=== PATIENT | male | born 1950 | race Caucasian/White ===

== ENCOUNTER 2016-06-08 18:47 | Emergency (ER) | payer OTHER ==
[~2016-06-08] VITALS: Ht 182.9 cm; Wt 107.7 kg
[~2016-06-08 18:47] MED LIST: ATEN50TA7 PO; LISI20TA PO; MIRT45TA PO; P EP PO; ZIPR80CA PO
[2016-06-08 19:02] VITALS: BP 136/71; PULSE 71; RESP 16; O2SAT 95
--- NOTE | 2016-06-08 19:09 | ED.REPORT ---
HPI-Extremity Problem Upper Date of Service Jun 08, 2016 ED Provider: Lele Inman DO A 65 year old male with a history of MRSA infection and paronychia presents to the ED complaining of a possible finger infection. The pt recently noticed redness, pain and swelling around the fingernail of his right third digit and became concerned that the area may be infected. The pt experienced similar symptoms several years ago and was diagnosed with paronychia. Nursing Notes Stated Complaint: RIGHT FINGER SWELLING AND RED Chief Complaint: Extremity Trauma Nursing Notes Reviewed: Yes Allergies: Coded Allergies: No Known Allergies (Verified , 06/08/16) Scheduled Atenolol-Expunged Drug, Do Not Renew! (Atenolol-Expunged Drug, Do Not Renew!) 50 Mg Tablet 50 MG PO AM Lisinopril-Expunged Drug, Do Not Renew! (Lisinopril-Expunged Drug, Do Not Renew! ) 20 Mg Tablet 20 MG PO AM Hold AM of surgery Mirtazapine-Expunged Drug, Do Not Renew! (Remeron-Expunged Drug, Do Not Renew!) 45 Mg Tablet 45 MG PO pm P-Ephed/Lorat (Allerclear D-24HR - Expunged Drug!) 1 Each Tab.sr.24h 1 EACH PO BID Ziprasidone-Expunged Drug, Do Not Renew! (Geodon-Expunged Drug, Do Not Renew!) 80 Mg Capsule 80 MG PO AM Ziprasidone-Expunged Drug, Do Not Renew! (Geodon-Expunged Drug, Do Not Renew!) 80 Mg Capsule 160 MG PO pm General Time Seen by MD: 19:09 Chief Complaint Other (Possible finger infection) Hx Obtained From: Patient Arrived By: Walk-in Symptom Duration: Since onset Recent Healthcare: No recent doctor visit, No recent hospitalization Similar Sx Previous: Yes Past Medical History Past Medical History MRSA paronychia Past Surgical History none reported Smoking History Unknown if Ever Smoker Social History Other Social History: Good social support, Ambulatory Status Independent Review of Systems Review of Systems Note: right third finger pain and swelling Constitutional: Denies: Fever Musculoskeletal: Denies: Back pain Skin: Denies Rash Complete sys rev & neg: except as marked. Respiratory: Denies: Non-productive cough Cardiovascular: Denies: Chest pain GI: Denies: Abdominal pain Physical Exam Initial Vital Signs Vital Signs (First) Date Time Temp Pulse Resp B/P Pulse Ox O2 Delivery O2 Flow Rate FiO2 06/08/16 19:02 36.6 71 16 136/71 95 Room Air Initial VS: Reviewed General/Constitutional: Awake, Alert Neck: Atraumatic, Supple, Full range of motion Respiratory / Chest: Atraumatic, Breath sounds NL, Breath sounds = bilat, No respiratory distress Cardiovascular: Heart rate NL, Regular rhythm, Heart sounds NL Upper Extremity / MS: Atraumatic, Full range of motion Wrist / Hand: Full range of motion paronychial infection of the right third digit no evidence of flexor or extensor tenosynovitis Skin: Warm, Dry Neurologic: Oriented X3, Speech NL, No motor deficits, No sensory deficits Head / Eyes: Atraumatic, Normocephalic, PERRL, EOMI ENT: Atraumatic, Airway patent, Mucous membranes moist Abdomen: Atraumatic, Soft, Non-tender Back: Atraumatic, Full range of motion Lower Extremity / Pelvis / MS: Atraumatic, Full range of motion Psychiatric: Affect NL, Mood NL Interpretation & Diagnostics Pulse Oximetry Interpretation Pulse Oximetry Interpretation: 95% on room air Pulse Oximetry: Pulse Ox normal Procedures Digital Nerve Block Time: 19:40 Procedure Performed by: ED physician Indication: Other (I&D paronychia) Consent / Setup / Site Prep: Informed consent provided, Consent from patient , Time-out performed, Hand hygiene observed, Stand sterile technique Skin Preparation Agent: Normal saline Digit Involved: Middle finger right Digital Block Procedure: Lidocaine 2% Post-Procedure / Complications: Antibiotic oint applied, Dressing applied, No complications, Condition improved, Tolerated procedure well, Patient stable Incision & Drainage Paronychia Time: 19:45 Procedure Performed by: ED physician Consent / Setup / Site Prep: Informed consent provided, Consent from patient , Time-out performed, Hand hygiene observed, Stand sterile technique, Standard surgical scrub, Sterile drapes applied Finger Involved: Right 3 Skin Preparation Agent: Normal saline Local Anesthesia: Lidocaine 2% Incised Abscess with Scalpel: #11 Pus Drained: Purulent discharge Post-Procedure / Complications: Packing placed, Culture obtained, Dressing applied, No complications, Condition improved, Tolerated procedure well, Patient stable Re-Eval/Medical Decision Source of Hx: Old records Re-Evaluation/Progress : Time of Eval: 19:40 Patient Status: Condition improved Re-Evaluation/Progress Note: Pt rechecked, who is comfortable. Digital nerve block and I&D are performed with out complication. The diagnosis and plan for discharge are discussed. The pt understands and agrees with the plan. All questions are addressed at this time. Counseled Regarding: Diagnosis, Need for follow-up, When/why to return to ED Discharge & Departure Impression: Primary Impression: Paronychia of finger of right hand Disposition: Home Discharge Condition All VS Reviewed: Yes Condition: Stable Patient Instructions: Paronychia (ED) Additional Instructions: Take Augmentin and Bactrim twice daily for 5 days. Soak your hand in Epsom salts with warm water as we discussed. Take 1-2 [place] every 6 hours as needed for pain. If the infection seemed to grow in size or any redness extends up your finger then come back tomorrow for recheck. Otherwise follow-up with your primary care physician next week. We have done a culture of the purulent material that was drained. This will help guide antibiotic therapy. This will be available in roughly 3-[address] or drink alcohol or consume acetaminophen while taking the [place]. Referrals: [facility] Attestation Portions of this note were transcribed by Martinez Coles. I, Dr. Inman personally performed the history, physical exam and medical decision-making; I reviewed and confirmed the accuracy of the information in the transcribed note. Signed by: Eitan Barry, 06/08/16 and 2016. copies to: [facility] Lele Inman DO Jun 08, 2016 19:09 MARTINEZ COLES Jun 08, 2016 19:20
[2016-06-08] MEDS ORDERED: Trimethoprim-Sulfa 160 mg-800 mg Tablet PO ONE (20:10)
[2016-06-08] MEDS ORDERED: Amoxicillin-Clav 875-125 mg Tablet PO ONE (20:10)
[2016-06-08 20:34] VITALS: BP 136/71; PULSE 71; RESP 16; O2SAT 95
== END 2016-06-08 20:37 | disposition home or self-care (01) ==
LOC: SED 18:47
DX: L03.011 Cellulitis of right finger (principal); Z86.14 Personal history of Methicillin resistant Staphylococcus aureus infection